=== PATIENT | female | born 1945 | race Caucasian/White ===

== ENCOUNTER 2017-08-13 09:42 | Emergency (ER) | payer OTHER ==
[~2017-08-13] VITALS: Ht 170.2 cm; Wt 89.2 kg
[2017-08-13 09:46] VITALS: BP 153/92
[2017-08-13] MEDS ORDERED: VALIUM5 MG PO (10:09)
== END 2017-08-13 10:22 | disposition home or self-care (01) ==
LOC: EME 09:42
DX: M62.830 Muscle spasm of back (principal); R05 Cough; Z79.82 Long term (current) use of aspirin; Z87.891 Personal history of nicotine dependence
CPT/HCPCS: 99281; 99283